=== PATIENT | female | born 1960 | race Two or more races ===

== ENCOUNTER 2017-12-13 12:00 | Emergency (ER) | payer OTHER ==
[~2017-12-13] VITALS: Ht 172.7 cm; Wt 113.4 kg
[~2017-12-13 12:00] MED LIST: CARAFATE1 G; FLEXERIL10 MG PO; LIBRAX CAPSULE1 CA1; NABUMETONE750 MG PO; NEXIUM I.V20 MG/VIAL IV; NEXIUM40 MG/PACK; PEPCID20 MG PO; PREVACID30 MG PO
== END 2017-12-13 17:58 | disposition home or self-care (01) ==
LOC: ER 12:00
DX: B34.9 Viral infection, unspecified (principal); J11.1 Influenza due to unidentified influenza virus with other respiratory manifestations

== ENCOUNTER 2018-01-19 08:57 | Outpatient (CLI) | payer OTHER | END 2018-01-19 12:10 | disposition home or self-care (01) | LOC: SONOGRAMA 08:57 | DX: R10.84 Generalized abdominal pain (principal) ==

== ENCOUNTER 2018-03-15 09:40 | Outpatient (CLI) | payer OTHER | END 2018-03-15 09:51 | disposition home or self-care (01) | LOC: RAD 501 09:40 | DX: M25.562 Pain in left knee (principal) ==

== ENCOUNTER 2018-05-18 14:05 | Outpatient (CLI) | payer OTHER | END 2018-05-18 14:12 | disposition home or self-care (01) | LOC: MAMO 607 14:05 | DX: Z12.31 Encounter for screening mammogram for malignant neoplasm of breast (principal); Z87.898 Personal history of other specified conditions; N62 Hypertrophy of breast ==

== ENCOUNTER 2019-01-20 07:50 | Outpatient (CLI) | payer OTHER ==
[~2019-01-20] VITALS: Ht 152.4 cm; Wt 90.7 kg
== END 2019-01-20 08:10 | disposition home or self-care (01) ==
LOC: OFIC 805 07:50
DX: H93.11 Tinnitus, right ear (principal); H70.10 Chronic mastoiditis, unspecified ear; H90.3 Sensorineural hearing loss, bilateral; J31.0 Chronic rhinitis; H60.8X3 Other otitis externa, bilateral; H91.23 Sudden idiopathic hearing loss, bilateral

== ENCOUNTER 2019-02-16 10:14 | Outpatient (CLI) | payer OTHER | END 2019-02-16 11:15 | disposition home or self-care (01) | LOC: RAD 501 10:14 | DX: M54.2 Cervicalgia (principal); M19.011 Primary osteoarthritis, right shoulder; M19.012 Primary osteoarthritis, left shoulder ==

== ENCOUNTER 2019-03-15 07:21 | Outpatient (CLI) | payer OTHER | END 2019-03-15 07:25 | disposition home or self-care (01) | LOC: TOM 07:21 | DX: R14.0 Abdominal distension (gaseous) (principal); R10.84 Generalized abdominal pain; K21.0 Gastro-esophageal reflux disease with esophagitis; R13.19 Other dysphagia ==

== ENCOUNTER 2019-05-19 08:55 | Outpatient (CLI) | payer OTHER ==
[~2019-05-19] VITALS: Ht 152.4 cm; Wt 90.7 kg
== END 2019-05-19 09:15 | disposition home or self-care (01) ==
LOC: OFIC 805 08:55
DX: H90.3 Sensorineural hearing loss, bilateral (principal); J31.0 Chronic rhinitis; J31.2 Chronic pharyngitis

== ENCOUNTER 2019-06-23 07:40 | Outpatient (CLI) | payer OTHER ==
[~2019-06-23] VITALS: Ht 152.4 cm; Wt 93.9 kg
== END 2019-06-23 09:30 | disposition home or self-care (01) ==
LOC: OFIC 805 07:40
DX: J31.0 Chronic rhinitis (principal); J31.2 Chronic pharyngitis; H93.11 Tinnitus, right ear; H60.8X3 Other otitis externa, bilateral; H91.22 Sudden idiopathic hearing loss, left ear; H70.12 Chronic mastoiditis, left ear; H90.3 Sensorineural hearing loss, bilateral

== ENCOUNTER → 2019-07-04 | Outpatient (CLI) | payer OTHER | END | disposition home or self-care (01) | LOC: MAMO-SONO 08:00 | DX: Z12.31 Encounter for screening mammogram for malignant neoplasm of breast (principal); Z87.898 Personal history of other specified conditions; N60.11 Diffuse cystic mastopathy of right breast; N60.12 Diffuse cystic mastopathy of left breast ==

== ENCOUNTER → 2019-07-13 | Emergency (ER) | payer OTHER ==
[~2019-07-13] VITALS: Ht 152.4 cm; Wt 130.6 kg
[~2019-07-13] MED LIST changes: +AMITRIPTYLINE H25 MG PO; +ATORVASTATIN CA20 MG; +BUPROPION HCL150 M1 PO; +CITALOPRAM HBR20 MG PO; +DEXILANT30 MG; +DOXEPIN HCL10 MG PO; +FENOFIBRATE43 MG; +GLIPIZIDE5 MG; +LAMICTAL200 MG PO; +LOSARTAN-HCTZ1 EAC1 PO; +METFORMIN HCL500 MG PO; +QUETIAPINE FUM400 MG PO; +SUCRALFATE1 GM PO
== END | disposition home or self-care (01) ==
LOC: ER 20:58 → SEC-K 07-14 07:45
DX: K52.89 Other specified noninfective gastroenteritis and colitis (principal)

== ENCOUNTER 2019-07-14 02:13 | Inpatient (IN) | payer OTHER ==
[~2019-07-14] VITALS: Ht 162.6 cm
[~2019-07-14 02:13] MED LIST changes: -AMITRIPTYLINE H25 MG PO; -BUPROPION HCL150 M1 PO; -CITALOPRAM HBR20 MG PO; -DOXEPIN HCL10 MG PO; -LAMICTAL200 MG PO; -LOSARTAN-HCTZ1 EAC1 PO; -QUETIAPINE FUM400 MG PO
[2019-07-17] MEDS ORDERED: AMITRIPTYLINE H25 MG PO (08:51)
[2019-07-17] MEDS ORDERED: LAMICTAL200 MG PO (08:51)
[2019-07-17] MEDS ORDERED: CITALOPRAM HBR20 MG PO (08:52)
[2019-07-17] MEDS ORDERED: DOXEPIN HCL10 MG PO (08:52)
[2019-07-17] MEDS ORDERED: BUPROPION HCL150 M1 PO (08:52)
[2019-07-17] MEDS ORDERED: LOSARTAN-HCTZ1 EAC1 PO (08:53)
[2019-07-17] MEDS ORDERED: QUETIAPINE FUM400 MG PO (08:53)
== END 2019-07-19 09:05 | disposition home or self-care (01) | DRG 392 ==
LOC: ER 02:13 → MEDJ 07:45 → SEC-K 07:45 → MEDJ 17:16
PROVIDERS: ADMIT Internal Medicine Cardiovascular Disease
DX: K52.89 Other specified noninfective gastroenteritis and colitis (principal); H70.12 Chronic mastoiditis, left ear; H90.3 Sensorineural hearing loss, bilateral; J31.0 Chronic rhinitis; J31.2 Chronic pharyngitis; H93.11 Tinnitus, right ear; H60.8X3 Other otitis externa, bilateral; K29.60 Other gastritis without bleeding

== ENCOUNTER 2020-01-30 16:24 | Emergency (ER) | payer OTHER ==
[~2020-01-30] VITALS: Ht 167.6 cm; Wt 113.4 kg
[~2020-01-30 16:24] MED LIST changes: +AMITRIPTYLINE H25 MG PO; +BUPROPION HCL150 M1 PO; +CITALOPRAM HBR20 MG PO; +DOXEPIN HCL10 MG PO; +LAMICTAL200 MG PO; +LOSARTAN-HCTZ1 EAC1 PO; +QUETIAPINE FUM400 MG PO
== END 2020-01-30 20:16 | disposition home or self-care (01) ==
LOC: ER 16:24
DX: K29.70 Gastritis, unspecified, without bleeding (principal)

== ENCOUNTER 2020-04-03 09:43 | Outpatient (CLI) | payer OTHER | END 2020-04-03 09:44 | disposition home or self-care (01) | LOC: RAD 09:43 | DX: R07.89 Other chest pain (principal); M12.88 Other specific arthropathies, not elsewhere classified, other specified site ==

== ENCOUNTER 2020-07-24 13:10 | Outpatient (CLI) | payer OTHER | END 2020-07-24 13:22 | disposition home or self-care (01) | LOC: MAMO-SONO 13:10 | PROVIDERS: ATTEND Obstetrics & Gynecology | DX: Z12.31 Encounter for screening mammogram for malignant neoplasm of breast (principal); N60.11 Diffuse cystic mastopathy of right breast; N60.12 Diffuse cystic mastopathy of left breast ==

== ENCOUNTER 2020-08-21 11:32 | Outpatient (CLI) | payer OTHER | END 2020-08-21 11:38 | disposition home or self-care (01) | LOC: RAD 11:32 | PROVIDERS: ATTEND Internal Medicine Cardiovascular Disease | DX: J44.9 Chronic obstructive pulmonary disease, unspecified (principal) ==

== ENCOUNTER 2020-09-09 08:35 | Outpatient (CLI) | payer OTHER | END 2020-09-09 08:46 | disposition home or self-care (01) | LOC: SONOGRAMA 08:35 | PROVIDERS: ATTEND Internal Medicine Gastroenterology | DX: R16.0 Hepatomegaly, not elsewhere classified (principal); R10.84 Generalized abdominal pain ==

== ENCOUNTER → 2020-10-21 | Outpatient (CLI) | payer OTHER | END | disposition home or self-care (01) | LOC: OFIC 805 08:30 | PROVIDERS: ATTEND Otolaryngology | DX: K21.9 Gastro-esophageal reflux disease without esophagitis (principal); R60.9 Edema, unspecified; J02.8 Acute pharyngitis due to other specified organisms ==

== ENCOUNTER 2020-12-24 09:02 | Outpatient (CLI) | payer OTHER | END 2020-12-24 16:23 | disposition home or self-care (01) | LOC: OFIC 805 09:02 | PROVIDERS: ATTEND Otolaryngology | DX: L30.8 Other specified dermatitis (principal); H90.3 Sensorineural hearing loss, bilateral ==

== ENCOUNTER 2021-02-10 21:15 | Emergency (ER) | payer OTHER ==
[~2021-02-10] VITALS: Ht 165.1 cm; Wt 136.1 kg
[2021-02-10] MEDS ORDERED: NEURONTIN300 MG (21:34)
[2021-02-10] MEDS ORDERED: GLIPIZIDE5 GM (21:34)
[2021-02-10] MEDS ORDERED: SENOKOT8.6 M1 (21:34)
[2021-02-10] MEDS ORDERED: LITHATE5 MG (21:34)
[2021-02-10] MEDS ORDERED: ABATINEX680 MG (21:35)
[2021-02-10] MEDS ORDERED: PROCTOZONE-HC30 GM (21:35)
[2021-02-10] MEDS ORDERED: SILENOR3 MG (21:35)
[2021-02-11] MEDS ORDERED: CIPRO500 MG PO (03:50)
[2021-02-11] MEDS ORDERED: INTESTINEX680 M2 PO (03:50)
== END 2021-02-11 04:09 | disposition home or self-care (01) ==
LOC: ER 21:15
DX: R10.84 Generalized abdominal pain (principal); R11.11 Vomiting without nausea; R19.7 Diarrhea, unspecified; Z03.818 Encounter for observation for suspected exposure to other biological agents ruled out